=== PATIENT | male | born 1930 | race Caucasian/White ===

== ENCOUNTER 2019-08-03 10:52 | Inpatient (IN) ==
[2019-08-03 12:06] LABS: BASO# 0.01 X1000 (0.0-0.2); BASO% 0.1 % (0.0-0.8); EOS# 0.01 X1000 (0.0-0.7); EOS% 0.1 % (0.0-10.0); HEMATOCRIT 44.6 % (42.0-52.0); HEMOGLOBIN 14.4 g/dL (14.0-18.0); IMM GRAN# 0.01 X1000 (0.0-0.04); IMM GRAN% 0.1 % (0.0-0.5); LYMPH# 0.67 X1000 (1.2-3.4); LYMPH% 8.4 % (20.5-51.1); MCH 28.2 PG (27-31); MCHC 32.3 g/dL (33-37); MCV 87.3 FL (81-99); MONO# 0.66 X1000 (0.11-0.59); MONO% 8.3 % (1.7-9.3); MPV 11.2 FL (7.4-10.4); NEUT# 6.61 X1000 (1.4-6.5); PLT 183 X1000 (130-400); RBC 5.11 XMIL (4.7-6.1); WBC 7.97 X1000 (4.8-10.8)
[2019-08-03 12:14] LABS: INR 1.1; PROTIME 14.8 Seconds (11.0-16.0); PTT 30.2 Seconds (22.3-41.8)
[2019-08-03 12:20] LABS: AGAP 9; ALBUMIN 4.1 g/dL (3.5-5.0); ALKALINE PHOSPHATASE 66 U/L (32-122); BUN 31 mg/dL (8-22); CALCIUM 9.2 mg/dL (8.8-10.2); CHLORIDE 104 mmol/L (98-107); COSMO 287; CREATININE 0.8 mg/dL (0.7-1.2); ESTIMATED GFR > 60; GLUCOSE 85 mg/dL (70-104); GOT 17 U/L (10-34); GPT 9 U/L (10-44); POTASSIUM 4.2 mmol/L (3.5-5.1); SODIUM 141 mmol/L (136-145); TCO2 28 mmol/L (25-35); TOTAL PROTEIN 5.8 g/dL (6.3-8.3)
[2019-08-03 12:39] LABS: OCCULT BLOOD 1 POSITIVE (NEGATIVE)
[2019-08-03] MEDS ORDERED: APRESOLINE IV PRN (13:30)
[2019-08-03] MEDS ORDERED: ZOFRAN IV PRN (13:34)
[2019-08-03] MEDS ORDERED: TYLENOL PO PRN (13:34)
--- NOTE | 2019-08-03 13:51 | PROVIDER DOCUMENTATION ---
This chart was entered by Sandrita Morris Scribe, acting as scribe for Vineet Corcoran MD. HPI-Abdominal Pain/GI Problem - General Chief Complaint: Rectal Bleeding Stated Complaint: BLLODY/BLACK STOOL Time Seen by Provider: 08/03/19 11:18 Source: patient, family (son and grandson) Allergies/Adverse Reactions: Patient Allergies Allergy/AdvReac Type Severity Reaction Status Date / Time cefazolin sodium * Allergy Unknown Verified 08/03/19 12:00 [From [facility]] Home Medications: Home Medication List Medication Instructions Recorded Confirmed Last Taken Type LISINOpril [Prinivil] 10 mg PO DAILY 04/27/15 08/03/19 08/02/19 History Levothyroxine [Synthroid] 75 microgm PO DAILY 04/27/15 08/03/19 08/02/19 History Cyanocobalamin (Vitamin B-12) 1,000 mcg IJ DIRECTED 09/05/17 08/03/19 08/02/19 History [Cyanocobalamin Injection] Lovastatin 10 mg PO QHS 09/05/17 08/03/19 08/02/19 History Loratadine [Claritin] 10 mg PO DAILY #20 cap 04/23/19 08/03/19 08/02/19 Rx - History of Present Illness-ABD Nature of Presenting Problems: 88 yowm presents to the ed with c/o black tarry stool since yesterday morning. pt sts he has had no pain or any other issue other then black stool. pt is no ntoxic in appearance. Abdominal Pain Onset Location: denies: other (denies any pain) Quality of Pain: reports: none Severity in ED: reports: mild Onset/Duration: reports: 24 hours ago Timing: reports: still present, intermittent Activities at Onset: reports: light activity Exposure to sick contacts?: No Modifying Factors: improves with: nothing Associated Symptoms: reports: other (black tarry stool). denies: back/neck pain, chest pain, diarrhea, headaches, nausea, seizure, shortness of breath, vomiting Last BM: this morning Dark Stools Present?: reports: black, tarry # of Diarrhea Episodes: 0 Rectal Pain: reports: none # of Vomiting Episodes: 0 Emesis Description: reports: none Bruising or Bleeding Gums?: No Similar Symptoms Previously?: Yes (years ago) Recently seen or treated by another doctor?: No Review of Systems - Adult - REVIEW OF SYSTEMS - ADULT Constitutional: denies: chills, fever Eyes: reports: no symptoms reported Ears, Nose, Mouth & Throat: reports: no symptoms reported Cardiovascular: denies: chest pain, palpitations Respiratory: denies: shortness of breath, wheezing Gastrointestinal: reports: rectal bleeding (black tarry stool). denies: abdominal pain, diarrhea, nausea, vomiting Genitourinary: reports: no symptoms reported Musculoskeletal: reports: no symptoms reported Integumentary: reports: no symptoms reported Neurological: denies: dizziness/vertigo, headache/migraines Psychiatric: reports: no symptoms reported Endocrine: reports: no symptoms reported Hematologic/Lymphatic: reports: no symptoms reported Allergic/Immunologic: reports: no symptoms reported All Other Systems: Reviewed and Negative Past History - Adult - PAST MEDICAL HISTORY-ADULT Review of Records: reports: Old Records Reviewed, Nursing Assessment Review, Medications Reviewed, Social history reviewed & non-contributory. Major Childhood Illnesses: reports: denies history Cardiovascular: reports: HTN Respiratory: reports: denies history Gastrointestinal: reports: other (diverticulitis) Genitourinary: reports: denies history Musculoskeletal: reports: denies history Hand Dominance: Right Handed Neurological: reports: denies history Psychiatric: reports: denies history Endocrine/Immune: reports: thyroid disorder Other Conditions: reports: denies history - PRIOR SURGERIES/PROCEDURES Surgical/Procedure History: reports: bowel surgery, back/neck - IMMUNIZATION STATUS Childhood Immunizations: See Nurse Assessment Flu Vaccine: See Nurse Assessment - FAMILY HISTORY Family History: reviewed, not pertinent - SOCIAL HISTORY Smoking: denies Substance Use: denies Living Situation: alone Physical Exam-General - PHYSICAL EXAM-ADULT Initial Vital Signs Reviewed: Yes - CONSTITUTIONAL General Appearance: appears well, alert, no apparent distress (pt denies any pain just black stool) - EYES Eyes: PERRL/EOMI, pink conjunctivae - HEAD, EARS, NOSE, MOUTH & THROAT HENMT: moist mucous membranes - NECK Neck: non-tender, full range of motion, normal inspection - RESPIRATORY Respiratory: chest non-tender, lungs clear - CARDIOVASCULAR Cardiovascular: normal peripheral pulses, regular rate, rhythm - CHEST (BREASTS) Chest/Breast: deferred - GASTROINTESTINAL (ABDOMEN) Abdominal Exam: non tender, soft - GENITOURINARY Male Genitalia: deferred Rectal Exam: deferred, other (pt provided stool with a BM) Hemoccult Exam: heme positive stool - LYMPHATIC Lymphatic: no adenopathy - MUSCULOSKELETAL Back Exam: no CVA tenderness, no vertebral tenderness Extremity: normal range of motion, non-tender, normal gait - SKIN Integumentary: normal color, normal turgor, warm/dry - NEUROLOGIC Neurologic: grossly normal - PSYCHIATRIC Psych/Mental Status: normal mood/affect, normal thought content, normal thought process, oriented x 3 Progress - PLAN OF CARE/RESULTS Progress/Plan/Lab Results: Vital Signs - 8 hr 08/03/19 11:02 Temperature 98.3 F Pulse Rate 76 Respiratory Rate 18 Blood Pressure 169/63 O2 Sat by Pulse Oximetry 97 Result Diagrams: 08/03/19 11:45 08/03/19 11:45 - REASSESSMENT Reassessment #1 Time Reassessed: 12:49 Status: unchanged - CT/MRI 1 CT Study: Abdomen, Pelvis Impression: See EMR Report - CONSULTS/PCP/HOSPITALIST Notification #1 *Consult/PCP/Hospitalist*: hospitalist dr benavides Time Discussed: 12:51 (pt will go [facility] to [facility] for GI services) Consult Disposition: Admit Departure - Departure Date of Disposition Decision: 08/03/19 Time of Disposition Decision: 12:49 DIAGNOSIS: Lower GI bleed Disposition: ADMITTED INPATIENT 09 Certified Medical Emergency: Emergent Condition: Stable Referrals and Follow-Ups: Tahira Vásquez MD [Primary Care Provider] - - Critical Care Note This patient required my direct & personal management of CC.: No Attestation - Physician/ LANA Attestation Patient care was provided by Advanced Practice Provider:: No The physician spent face to face time with patient:: Yes Advanced Practice Provider documentation review:: Supervising physician onsite and consulted in the evaluation and care of this patient. The physician did have a face to face encounter with the patient. This chart was documented by the indicated scribe, (Sandrita Morris Scribe) and accurately reflects the services I performed and decisions made by me, Vineet Corcoran MD, as attested by the provider's signature.
[2019-08-03] MEDS ORDERED: CARAFATE LIQUID PO SCH ×2 (14:00→20:00)
[2019-08-03] MEDS: NS 1,000 ML IV PRN (14:06)
[2019-08-03] MEDS: SODIUM CHLORIDE 0.9% INJ SCH (14:06)
[2019-08-03] MEDS: PROTONIX IV SCH (14:06)
--- NOTE | 2019-08-03 14:12 | HISTORY AND PHYSICAL ---
PRIMARY CARE PROVIDER: Dr. Vásquez. CHIEF COMPLAINT: Black tarry stools. HISTORY OF PRESENT ILLNESS: Mr. Justin Hernandez is an 88-year-old, male with a medical history of bleeding diverticulitis and diverticulosis with a subtotal abdominal colectomy performed in 2014. It was also his last colonoscopy. The only GI irritant that he even takes would be an aspirin 81 mg p.o. daily. Otherwise he takes no czzq-ldg-mpyvork medications. He states that yesterday morning he had a blood pressure over 200 and then started having large black story stools yesterday. He 1 large black tarry stool yesterday. He has only had 1 small stool this morning but both have been black, tarry and positive for blood in the stool. The hemoglobin and hematocrit are stable at 14 and 44. His vital signs are stable. We are going to admit, do some scans, start him on Protonix, Carafate, clear liquids. PAST MEDICAL HISTORY: 1. Hypertension. 2. Dyslipidemia. 3. Hypothyroidism. 4. Diverticulosis and diverticulitis. 5. BPH. 6. Osteoarthritis. 7. Vitamin B12 deficiency. 8. Carotid artery stenosis. 9. Allergic rhinitis. SURGICAL HISTORY: 1. In 2015 had a colonoscopy, in 2015 had a subtotal abdominal colectomy by Dr. Sanabria. 2. Eyelid surgery. 3. ORIF of the right distal radius. SOCIAL HISTORY: Quit smoking in 1974 but he was a 2 pack per day smoker for 18 years prior to that. Rarely drinks alcohol. Denies any illicit drugs. He has one son who lives in [place] and another one in [place]. He had his grandson with him and he currently lives alone. FAMILY HISTORY: He had a daughter that actually from lung cancer. ALLERGIES: Codeine and cefazolin. HOME MEDICATIONS: 1. Lovastatin 10 mg p.o. nightly. 2. Vitamin B12 1000 mcg injection, says as directed, there were no specifics on that. 3. Lisinopril 10 mg p.o. daily. 4. Synthroid 75 mcg p.o. daily. 5. Claritin 10 mg p.o. daily. 6. Aspirin 81 mg p.o. daily. REVIEW OF SYSTEMS: He denies abdominal pain, nausea or vomiting and all were negative except for those mentioned in above HPI. PHYSICAL EXAMINATION: VITAL SIGNS: Temperature 98.3 degrees, heart rate 76, respiratory rate 18, blood pressure 169/63, O2 saturation 97% on room air. 5 feet 11 inches tall, 196 pounds. BMI is 27.3. GENERAL: Justin Hernandez is an 88-year-old, male. He is in no acute distress. He is able answer questions appropriately. HEENT: Atraumatic, normocephalic. Pupils equal, round, reactive to light. Extraocular movements intact. The skin around the eyelids they are very droopy and even showed the inside of the eyelids on the bottom. NECK: Trachea midline. CARDIOVASCULAR: S1, S2. Regular rate and rhythm. No rubs, gallops, murmurs. No lower extremity edema. +2 dorsalis and radial pulses. Negative JVD or carotid bruits. PULMONARY: Clear to auscultation. Bilateral breath sounds. No accessory muscle use or work of breathing noted/ GI: Soft, nontender, nondistended. Positive bowel sounds x4. EXTREMITIES: Moves all extremities equally. Decreased range of motion. NEUROLOGIC: A and O x3. Follows commands. Sensory is intact. SKIN: Warm, dry, intact. LABORATORY DATA: White blood cells 7000, hemoglobin 14, hematocrit 44, platelet count 183,000. INR is 1.10, PTT 30.2. Sodium 141, potassium 4.2, BUN 31, creatinine 0.8, glucose 85, calcium 9.2, bilirubin 0.90, AST 17, ALT 9, albumin 4.1. Stools positive for blood. IMAGING: None but has been ordered. ASSESSMENT/PLAN: 1. Likely diverticular bleed as he has had that in the past although it is black and tarry. We will hold his aspirin that he takes every day. We will do q.6 hours H and H. He will have Protonix IV twice a day. We will add Carafate 1 g every 6 hours. We will send for oral and IV contrasted abdominal pelvic CT scan. 2. Hypertension. He is going to get IV contrast and we will hold lisinopril for now. We will give him some IV fluids and he can have p.r.n. hydralazine for an elevated systolic over 180. 3. Dyslipidemia. He takes lovastatin. We are holding that for now. 4. Hypothyroidism. Continue Synthroid. 5. BPH. Looks like he is not on any medications for that. 6. Vitamin B12 deficiency. He takes vitamin B12 subcutaneous injections at home. 7. Carotid atherosclerosis. No reports of stroke in the past. 8. Allergic rhinitis. He takes Claritin, hold that for now. 9. Deep venous thrombosis prophylaxis. SCDs. Dictated by JAMES Gutierrez for Darian Valencia MD Addendum: Patient seen and examined by myself. Agree with TRAFFIC SURVEY TECHNICIAN note. It reflects my assessment and plan. Patient is admitted to hospital for GI bleeding, in this case melena. Will start Protonix 40 mg IV q12 hrs, will consult GI and transfer patient to [facility]. Will monitor patient closely. cc: JAMES Gutierrez MD [facility]
[2019-08-03] MEDS ORDERED: NS 1,000 ML IV PRN (15:10)
--- NOTE | 2019-08-03 16:26 | Diag Imaging Result Doc PS360 ---
EXAM: CT ABD/PELVIS W/PO AND IV CON 08/03/2019 HISTORY: gib TECHNIQUE: This exam was performed using automated exposure control, adjustment of mA or kV according to patient size, and/or use of iterative reconstruction technique. COMMENT: The current study is compared with 03/24/2015. There is increased interstitial markings in both lung bases compared to the previous study which may indicate pulmonary edema. There is a large hiatal hernia. The spleen is not enlarged. There is a partially calcific and fatty nodule in the left adrenal gland. This is not changed significantly since the previous study. There is possible this is an adenoma and/or granulomatous change. There are dense atherosclerotic calcifications present in the proximal superior mesenteric artery. There are also calcifications in the ostia of the renal arteries particularly the right renal artery. There is infrarenal abdominal aortic aneurysm with a maximum AP diameter of 3.7 cm. This is increased from 3.5 cm at the time the previous study. The pancreas is stable in appearance. There is no evidence of bowel obstruction. There are multiple renal cysts particularly on the left where one cyst measures 3.5 cm in diameter. The small bowel is not distended. There has apparently been colectomy with anastomosis of the distal ileum with the rectum. Pelvis: The prostate gland is enlarged. It measures 6.9 x 5.5 cm. The urinary bladder is not distended. There is ankylosis of the sacroiliac joints. There are degenerative changes in the hip joints. There are severe degenerative disc and facet changes in the lumbar spine. No evidence of acute bony disease is present. IMPRESSION: No evidence of obstruction, abnormal fluid collections or free air. Interstitial pulmonary edema. Abdominal aortic aneurysm. Other nonacute findings as described above. Electronically signed by Jewel Dean 08/03/2019 4:23 PM
[2019-08-03 18:39] LABS: HEMOGLOBIN 13.9 g/dL (14.0-18.0)
[2019-08-04] MEDS: NS 1,000 ML IV PRN (00:10)
[2019-08-04] MEDS: PROTONIX IV SCH ×2 (00:15→13:24)
[2019-08-04 00:52] LABS: HEMATOCRIT 35.7 % (42.0-52.0); HEMOGLOBIN 11.7 g/dL (14.0-18.0)
[2019-08-04] MEDS: SYNTHROID PO SCH (06:32)
[2019-08-04] MEDS ORDERED: SYNTHROID PO SCH (07:00)
[2019-08-04 07:21] LABS: INR 1.24; PROTIME 15.8 Seconds (11.0-16.0)
[2019-08-04 07:22] LABS: PTT 32.4 Seconds (22.3-41.8)
[2019-08-04 07:33] LABS: AGAP 8; ALBUMIN 3.2 g/dL (3.5-5.0); ALKALINE PHOSPHATASE 43 U/L (32-122); BUN 26 mg/dL (8-22); CALCIUM 8.2 mg/dL (8.8-10.2); CHLORIDE 105 mmol/L (98-107); COSMO 282; CREATININE 0.7 mg/dL (0.7-1.2); ESTIMATED GFR > 60; GLUCOSE 102 mg/dL (70-104); GOT 14 U/L (10-34); GPT 7 U/L (10-44); MAGNESIUM 1.7 mg/dL (1.5-2.7); SODIUM 139 mmol/L (136-145); TCO2 26 mmol/L (25-35); TOTAL BILIRUBIN 0.71 mg/dL (0.20-1.00); TOTAL PROTEIN 4.8 g/dL (6.3-8.3)
[2019-08-04 08:07] LABS: BASO# 0.01 X1000 (0.0-0.2); BASO% 0.2 % (0.0-0.8); EOS# 0.04 X1000 (0.0-0.7); EOS% 0.7 % (0.0-10.0); HEMOGLOBIN 11.7 g/dL (14.0-18.0); LYMPH# 0.68 X1000 (1.2-3.4); LYMPH% 11.9 % (20.5-51.1); MCH 28.5 PG (27-31); MCHC 32.5 g/dL (33-37); MCV 87.6 FL (81-99); MONO# 0.56 X1000 (0.11-0.59); MONO% 9.8 % (1.7-9.3); MPV 11.3 FL (7.4-10.4); NEUT# 4.43 X1000 (1.4-6.5); NEUT% 77.4 % (42.2-75.2); PLT 160 X1000 (130-400); RBC 4.11 XMIL (4.7-6.1); RDW 13.6 % (11.5-14.5); WBC 5.72 X1000 (4.8-10.8)
[2019-08-04 11:55] LABS: HEMATOCRIT 36.2 % (42.0-52.0); HEMOGLOBIN 11.8 g/dL (14.0-18.0)
--- NOTE | 2019-08-04 12:29 | PROGRESS NOTE ---
DATE: 08/04/2019 INTERVAL HISTORY: The patient reports feeling well but has continued to have melenic stools. Last was late last night. No bowel movements so far this morning. Denies dyspnea, chest pain, diaphoresis, dizziness. REVIEW OF SYSTEMS: Twelve point review of systems negative except as per interval history. LABS: WBC 5.7, hemoglobin 11.7, hematocrit 36.0, platelets 160,000. INR 1.24. Basic metabolic panel unremarkable. Magnesium 1.7. LFTs within normal limits. Stool occult blood positive. VITALS: T-max 98.3 degrees, pulse 81, respirations 12, blood pressure 136/77, O2 saturation 96% on room air. PHYSICAL EXAMINATION: General: No acute distress. Vitals: As above. HEENT: Normocephalic, atraumatic. Moist mucous membranes. No cervical adenopathy. Cardiovascular: Regular rate and rhythm. No murmurs noted. Pulmonary: Clear to auscultation bilaterally. No wheezing, rales, or rhonchi. Abdomen: Soft, nontender, nondistended. Bowel sounds positive. Extremities: Peripheral pulses intact. No clubbing, cyanosis, or edema. Neurologic: Cranial nerves grossly intact. No focal deficits identified. Psychiatric: Normal mood and affect. Awake, alert, and oriented x3. Skin: No new appearing rashes or lesions identified. ASSESSMENT AND PLAN: 1. Likely upper gastrointestinal bleed and acute blood loss anemia. The patient is presenting with melenic stools. Initial hemoglobin essentially normal but downtrend overnight. Initial hemoglobin 14.4. Hemoglobin down to 11.7 this morning. Repeat this afternoon stable but does appear to be bleeding. Still with melenic stools yesterday evening. Continue proton pump inhibitor. Monitor blood counts and await further gastroenterology recommendations. Suspect he will go for endoscopy tomorrow. No need for transfusion at this time but we will consider it if his blood counts continue to decrease significantly. 2. Hypothyroidism. Continue home Synthroid dose. 3. Hyperlipidemia. Restart home lovastatin once he is able to take adequate oral intake. 4. Hypertension. Holding home lisinopril currently. We will monitor. 5. Allergies. We will restart home loratadine when he is taking adequate oral intake.
[2019-08-05] MEDS: PROTONIX IV SCH ×2 (01:14→14:29)
[2019-08-05] MEDS: SYNTHROID PO SCH (06:12)
[2019-08-05 07:29] LABS: BASO# 0.02 X1000 (0.0-0.2); BASO% 0.4 % (0.0-0.8); EOS# 0.04 X1000 (0.0-0.7); EOS% 0.7 % (0.0-10.0); HEMATOCRIT 31.8 % (42.0-52.0); HEMOGLOBIN 10.5 g/dL (14.0-18.0); LYMPH# 0.69 X1000 (1.2-3.4); LYMPH% 12.1 % (20.5-51.1); MCH 28.8 PG (27-31); MCV 87.4 FL (81-99); MONO# 0.55 X1000 (0.11-0.59); MONO% 9.6 % (1.7-9.3); MPV 11.3 FL (7.4-10.4); NEUT# 4.41 X1000 (1.4-6.5); NEUT% 77.2 % (42.2-75.2); PLT 148 X1000 (130-400); RBC 3.64 XMIL (4.7-6.1); RDW 13.5 % (11.5-14.5); WBC 5.71 X1000 (4.8-10.8)
[2019-08-05 07:47] LABS: AGAP 8; ALB/GLOB RATIO 2.3; ALBUMIN 3.2 g/dL (3.5-5.0); ALKALINE PHOSPHATASE 38 U/L (32-122); BUN 25 mg/dL (8-22); CALCIUM 8.3 mg/dL (8.8-10.2); CHLORIDE 105 mmol/L (98-107); COSMO 280; CREATININE 0.6 mg/dL (0.7-1.2); ESTIMATED GFR > 60; GLUCOSE 102 mg/dL (70-104); GOT 15 U/L (10-34); GPT 7 U/L (10-44); MAGNESIUM 1.9 mg/dL (1.5-2.7); POTASSIUM 3.8 mmol/L (3.5-5.1); SODIUM 138 mmol/L (136-145); TCO2 25 mmol/L (25-35); TOTAL BILIRUBIN 0.86 mg/dL (0.20-1.00); TOTAL PROTEIN 4.6 g/dL (6.3-8.3)
[2019-08-05] MEDS ORDERED: XYLOCAINE-MPF 2% ONE (10:41)
[2019-08-05] MEDS ORDERED: DIPRIVAN 1% ONE (10:41)
--- NOTE | 2019-08-05 11:28 | ENDOSCOPY OPERATIVE NOTE ---
[facility] ENDOSCOPY OPERATIVE NOTE , PATIENT: Justin Hernandez ADMISSION DATE: MR#: [id number] : 1930 EGD PROCEDURE REPORT PROCEDURE DATE: 08/05/2019 SURGEON: Meet Parrish MD STATUS: inpatient [employer]ITATION TRUCK DRIVER: Arslan Beach and Neida Rivera PREOPERATIVE DIAGNOSIS: The patient is a 88 yr old male here for an EGD due to Melena, anemia, GI Bl eed. PROCEDURE PERFORMED: EGD, diagnostic MEDICATIONS: Per Anesthesia TOPICAL ANESTHETIC: none CONSENT: The patient understands the risks and benefits of the procedure and understands that these r isks include, but are not limited to: sedation, allergic reaction, infection, perforation and/or bleeding. Alternative means of evaluation and treatment include, among others: physical exam, x-rays, and/or surgical intervention. The patient elects to proceed with this endoscopic procedure. HISORY AND PHYSICAL: 08/05/2019 function. Hand hygiene and appropriate measures for infection prevention was taken. After the risks, benefits and alternatives of the procedure were thoroughly explained, Informed consent was verified, confirmed and timeout was successfully executed by the treatment team. The patient was anesthetized with topical anesthesia and the endoscope was introduced through the mouth and advanced to the second portion of the duodenum. Retroflexion wa s performed in the stomach and revealed a hiatal hernia. The gastroscope was then slowly withdrawn and removed. ESOPHAGUS: The mucosa of the esophagus appeared normal. A hiatal hernia was noted. Large Para eso phageal Hiatal hernia noted involving majority of the stomach causing difficulty with the passage of EGD scope into the distal body and antrum. Need surgery evaluation and Barium UGI series. STOMACH: Acute gastritis (inflammation) was found in the gastric body and gastric antrum. DUODENUM: The duodenal mucosa showed no abnormalities in the duodenal bulb, 1st part duodenum, and 2n d part duodenum. SPECIMENS REMOVED: No ADVERSE EVENTS: There were no complications. POSTOPERATIVE DIAGNOSIS: 1. The mucosa of the esophagus appeared normal 2. Hiatal hernia 3. Large Para esophageal Hiatal hernia noted involving majority of the stomach causing difficulty wi th the passage of EGD scope into the distal body and antrum. Need surgery evaluation and Barium UGI series 4. Acute gastritis (inflammation) was found in the gastric body and gastric antrum 5. The duodenal mucosa showed no abnormalities in the duodenal bulb, 1st part duodenum, and 2nd part duodenum RECOMMENDATIONS: Watch Hct and trasfuse as needed; Surgery consultaion; Schedule for UGI barium s tudy to evaluate for Hiatal hernia; Start PPI BID for 3 months; Start iron C BID and MVI QD for 90 days. May need col onoscopy if continues to drop Hct. REPEAT EXAM: Meet Parirsh MD eSigned: Meet Parrish MD 08/05/2019 12:28 PM cc: PATIENT NAME: Justin Hernandez MR#: [id number]
--- NOTE | 2019-08-05 14:44 | PROGRESS NOTE ---
DATE: 08/05/2019 INTERVAL HISTORY: The patient is with no further complaints of melena but blood counts are still decreasing. Status post EGD earlier today showing gastritis and large hiatal hernia which contained almost the entirety of the stomach. There was some difficulty advancing the scope into the stomach. No other acute events. No new complaints. REVIEW OF SYSTEMS: Twelve point review of systems negative except as per interval history. LABS: WBC 5.7, hemoglobin 10.5, hematocrit 31.8, platelets 148,000. Basic metabolic panel unremarkable. VITALS: T-max 98.6 degrees, pulse 76, respirations 20, blood pressure 134/74, O2 saturation 98% on room air. PHYSICAL EXAMINATION: General: No acute distress. Vitals: As above. HEENT: Normocephalic, atraumatic. Eyelids somewhat hypertrophic, which is chronic and stable. Cardiovascular: Regular rate and rhythm. No murmurs noted. Pulmonary: Clear to auscultation bilaterally. Abdomen: Soft, nontender, nondistended. Bowel sounds positive. Extremities: Peripheral pulses intact. No clubbing, cyanosis. Neurologic: Cranial nerves grossly intact. No focal deficits identified. Psychiatric: Normal mood and affect. Awake, alert, and oriented x3. Skin: No new rashes or lesions identified. ASSESSMENT AND PLAN: 1. Upper gastrointestinal bleed and acute blood loss anemia. Patient presenting with melenic stools. Initial hemoglobin was essentially normal but has had steady downtrend since then. Initial hemoglobin was 14.4, down to 10.5 today. No need for transfusion but if it continues to trend down, he may get there. Esophagogastroduodenoscopy showing gastritis which may be the source of bleeding but no ulcers. It also showed a large hiatal hernia almost entirely containing the stomach. Gastroenterology recommending a barium swallow and surgical evaluation for this. We will continue monitoring blood counts and transfuse if needed. Continue proton pump inhibitor. 2. Hypothyroidism. Continue home Synthroid. 3. Hyperlipidemia. We will likely restart his home lovastatin once he is taking oral intake regularly. 4. Hypertension. Holding home lisinopril currently, given normal blood pressures. Monitor. 5. Seasonal allergies. Restart home loratadine once he is taking regular oral intake.
--- NOTE | 2019-08-05 14:56 | Diag Imaging Result Doc PS360 ---
GI SERIES WITH BA SWALLOW - 08/05/2019 INDICATION: Evaluate for para esophageal hiatal hernia TECHNIQUE: Upper GI with air contrast. Total fluoroscopy time was two minutes 55 seconds. 86 images were obtained. COMPARISON: CT from 08/03/2019 FINDINGS: The gastroesophageal junction is located just above the diaphragmatic hiatus. There is a large paraesophageal hernia with about three quarters of the stomach up in the chest behind the heart. There is mild presbyesophagus with some tertiary waves during the later swallowing phases. There is also mild to moderate reflux when the patient is recumbent to the high thoracic esophagus. No esophageal strictures. No mass or definite ulceration. IMPRESSION: 1. Large paraesophageal hiatal hernia with the majority of the stomach up in the chest. The gastroesophageal junction is just above the hiatus. 2. Moderate presbyesophagus. 3. Moderate reflux when the patient is common. Electronically signed by Missael Chin 08/05/2019 2:54 PM
[2019-08-05] MEDS: ICAR-C PO SCH (21:21)
[2019-08-06] MEDS: PROTONIX IV SCH ×2 (02:14→16:17)
[2019-08-06] MEDS: SYNTHROID PO SCH (06:13)
[2019-08-06 07:59] LABS: AGAP 9; ALB/GLOB RATIO 2.9; ALBUMIN 3.5 g/dL (3.5-5.0); ALKALINE PHOSPHATASE 41 U/L (32-122); BUN 18 mg/dL (8-22); CALCIUM 8.1 mg/dL (8.8-10.2); CHLORIDE 105 mmol/L (98-107); COSMO 283; CREATININE 0.5 mg/dL (0.7-1.2); ESTIMATED GFR > 60; GLUCOSE 101 mg/dL (70-104); GOT 16 U/L (10-34); GPT 7 U/L (10-44); MAGNESIUM 1.8 mg/dL (1.5-2.7); SODIUM 141 mmol/L (136-145); TCO2 27 mmol/L (25-35); TOTAL BILIRUBIN 1.08 mg/dL (0.20-1.00); TOTAL PROTEIN 4.7 g/dL (6.3-8.3)
[2019-08-06 08:29] LABS: BASO# 0.01 X1000 (0.0-0.2); BASO% 0.2 % (0.0-0.8); EOS# 0.04 X1000 (0.0-0.7); EOS% 0.8 % (0.0-10.0); HEMATOCRIT 30.6 % (42.0-52.0); HEMOGLOBIN 9.6 g/dL (14.0-18.0); LYMPH# 0.62 X1000 (1.2-3.4); LYMPH% 12.1 % (20.5-51.1); MCH 28.1 PG (27-31); MCHC 31.4 g/dL (33-37); MCV 89.5 FL (81-99); MONO# 0.42 X1000 (0.11-0.59); MONO% 8.2 % (1.7-9.3); MPV 11.6 FL (7.4-10.4); NEUT# 4.02 X1000 (1.4-6.5); NEUT% 78.7 % (42.2-75.2); PLT 159 X1000 (130-400); RBC 3.42 XMIL (4.7-6.1); RDW 13.7 % (11.5-14.5); WBC 5.11 X1000 (4.8-10.8)
[2019-08-06] MEDS: THERA M PLUS PO SCH (11:04)
[2019-08-06] MEDS: ICAR-C PO SCH ×2 (11:04→22:30)
--- NOTE | 2019-08-06 15:38 | PROGRESS NOTE ---
DATE: 08/06/2019 SUBJECTIVE: The patient states that he feels better. He is not further complaining of melena but his hemoglobin is still dropping though, he is tolerating p.o. He has a large paraesophageal hiatal hernia with the majority of the stomach up in the chest, the gastroesophageal junction is just above the hiatus, moderate presbyesophagus and moderate reflux, he was also scope by Gastroenterology Department, esophageal mucosa looks normal and also they found a large paraesophageal hiatal hernia, also gastritis, surgery department evaluated this patient. We will wait for recommendations. PHYSICAL EXAMINATION: Temperature 97.7 degrees, pulse 83, respiratory rate 20, blood pressure 108/72, oxygen saturation 98 on room air.HEENT: Head normocephalic. No trauma. PERRLA. Neck: Supple. No JVD. No masses. Central trachea. Chest: Clear to auscultation. No wheezing, no rales. Abdomen: Soft, nondistended, positive bowel sounds. Extremities: No edema, no clubbing, no cyanosis. Neurologic: Patient is alert, he is oriented x3. He follows commands. He moves all 4 extremities. LABORATORY: WBC 5.1, hemoglobin 9.6, hematocrit 30.6, platelet 159,000. Sodium 141, potassium 4, chloride 105, bicarbonate 27, BUN 18, creatinine 0.5, glucose 101, calcium 8.1, albumin 3.5. ASSESSMENT AND PLAN: 1. Gastrointestinal bleed and acute blood loss anemia. His hemoglobin dropped compared with yesterday from 10.5 to 9.6, they found a gastritis and also large paraesophageal hiatal hernia, surgery department has been consulted. I will wait for recommendations. 2. Hypothyroidism. Continue with Synthroid. 3. Hyperlipidemia. Continue with same management. 4. Hypertension currently seems to be stable. We will continue to monitor. 5. Seasonal allergies. Will restart loratadine upon discharge. cc: Roc Matute MD
[2019-08-06] MEDS: SODIUM CHLORIDE 0.9% INJ SCH (16:17)
--- NOTE | 2019-08-06 22:09 | GENERAL SURGERY CONSULTATION ---
DATE: 08/06/2019 REASON FOR CONSULTATION: Paraesophageal hernia. HISTORY OF PRESENT ILLNESS: This is an 88-year-old male who presented to the hospital a few days ago with recent onset of dark stools. He was found to have blood in his stools and has undergone an EGD yesterday along with an upper GI barium swallow that both demonstrated a large paraesophageal hernia, as well as acute gastritis. The duodenum apparently was normal. Since that time. He has had no further significant bloody stools. He denies any abdominal pain, chest pain, shortness of breath, history of aspiration pneumonia, regurgitation, vomiting, indigestion, heartburn, dysphagia, etc. PAST MEDICAL HISTORY: Hypertension, hypothyroidism, diverticulitis, BPH, osteoarthritis, coronary artery disease. PAST SURGICAL HISTORY: Subtotal colectomy, ORIF of right distal radius. SOCIAL HISTORY: He quit smoking in 1974. He drinks alcohol rarely. No illicit drug use. He lives alone. ALLERGIES: Ancef. FAMILY HISTORY: His daughter of lung cancer. HOME MEDICATIONS: Lovastatin, vitamin B12, lisinopril, Synthroid, Claritin, aspirin. REVIEW OF SYSTEMS: Ten systems reviewed and are negative except as noted above in HPI. PHYSICAL EXAMINATION: Temperature 97.5 degrees, pulse 87, respirations 18, blood pressure 113/69, O2 saturation 96%. General: Elderly male who looks his stated age, in no acute distress.HEENT: Normocephalic, atraumatic. Extraocular muscles intact. Pupils equal, round, reactive to light. Sclerae anicteric. Moist mucous membranes. Hearing grossly normal. Neck: Supple. No thyromegaly. Cardiovascular: Regular rate and rhythm. Respiratory: Bilateral breath sounds. No increased work of breathing. Gastrointestinal: Soft, nontender, nondistended. No organomegaly or mass. Extremities: No clubbing, cyanosis or edema. Skin: Warm and dry. No rash. Musculoskeletal: Moves all extremities equally and well. LABORATORY DATA: White blood cell count 5, hemoglobin 9.6, hematocrit 30.6, platelet count 159,000. Electrolytes reviewed and are unremarkable. DIAGNOSTIC DATA: His upper GI series shows a large paraesophageal hernia with the majority of the stomach in the chest. The gastroesophageal junction is just above the hiatus. He has moderate presbyesophagus and moderate reflux. ASSESSMENT AND PLAN: An 88-year-old male with acute blood loss anemia, likely from the gastritis. He is hemodynamically stable. It appears that the bleeding has subsided. He also has a new diagnosis of a paraesophageal hernia. Interestingly, he is asymptomatic from this except for the bleeding at this time. Given his age and lack of symptoms, I recommend a conservative approach with proton pump inhibitor and Carafate, and avoiding surgery if possible. We will continue to monitor. I will start him on a clear liquid diet and advance him as tolerated. cc: Balaji Vanegas MD
--- NOTE | 2019-08-06 23:47 | PROVIDER PROGRESS NOTE ---
Progress Note S: No acute overnight events. He denies further melena. No abdominal pain, CP, SOB. O: Last Vital Signs Temp 97.9 F 08/06/19 20:00 Pulse 73 08/06/19 20:00 Resp 19 08/06/19 20:00 BP 100/38 08/06/19 20:00 Pulse Ox 93 L 08/06/19 20:00 Height 5 ft 11 in Weight 196 lb GEN: awake, alert, NAD HEENT: anicteric, MMM NECK: supple, no JVD PULM: CTAB, no wheezing CV: RRR, no murmurs ABD: soft NT/ND, NABS EXT: no cce NEURO: nonfocal LABS: 08/06/19 08/06/19 06:50 06:50 WBC 5.11 Hgb 9.6 L Plt Count 159 Sodium 141 Potassium 4.0 Chloride 105 Carbon Dioxide 27 BUN 18 Creatinine 0.5 L EGD 08/05 ESOPHAGUS: The mucosa of the esophagus appeared normal. A hiatal hernia was noted. Large Para esophageal Hiatal hernia noted involving majority of the stomach causing difficulty with the passage of EGD scope into the distal body and antrum. Need surgery evaluation and Barium UGI series. STOMACH: Acute gastritis (inflammation) was found in the gastric body and gastric antrum. DUODENUM: The duodenal mucosa showed no abnormalities in the duodenal bulb, 1st part duodenum, and 2nd part duodenum. A/P: Mr. Justin Hernandez is a 88 year old man who was admitted with acute GI bleeding melena. He underwent EGD on 08/05 that revealed a large paraesophageal hernia and mild antral gastritis. There were no Omar's ulcers or stigmata of recent bleeding. He was seen by Surgery today for evaluation and hernia who recommended conservative mgmt as he is basically asymptomatic from this. The patient denies complaints at this time. He is stable and tolerating diet. Will continue PPI BID. He can take this orally. I do not see the benefit of Carafate, which we can stop. If his hgb continues to drop, then he will need diagnostic colonoscopy. Will follow with you.
[2019-08-07] MEDS: SYNTHROID PO SCH (06:36)
[2019-08-07 08:09] LABS: BASO# 0.01 X1000 (0.0-0.2); BASO% 0.2 % (0.0-0.8); EOS# 0.04 X1000 (0.0-0.7); EOS% 0.8 % (0.0-10.0); HEMATOCRIT 29.6 % (42.0-52.0); HEMOGLOBIN 9.2 g/dL (14.0-18.0); LYMPH# 0.65 X1000 (1.2-3.4); LYMPH% 13.6 % (20.5-51.1); MCHC 31.1 g/dL (33-37); MONO# 0.45 X1000 (0.11-0.59); MONO% 9.4 % (1.7-9.3); MPV 11.4 FL (7.4-10.4); NEUT# 3.63 X1000 (1.4-6.5); PLT 173 X1000 (130-400); RBC 3.29 XMIL (4.7-6.1); RDW 13.6 % (11.5-14.5); WBC 4.78 X1000 (4.8-10.8)
[2019-08-07] MEDS: THERA M PLUS PO SCH (08:09)
[2019-08-07] MEDS: ICAR-C PO SCH (08:09)
[2019-08-07 08:23] LABS: AGAP 7; ALB/GLOB RATIO 2.5; ALBUMIN 3.5 g/dL (3.5-5.0); ALKALINE PHOSPHATASE 44 U/L (32-122); BUN 14 mg/dL (8-22); CALCIUM 8.6 mg/dL (8.8-10.2); CHLORIDE 105 mmol/L (98-107); COSMO 284; CREATININE 0.7 mg/dL (0.7-1.2); ESTIMATED GFR > 60; GLUCOSE 98 mg/dL (70-104); GOT 18 U/L (10-34); GPT 8 U/L (10-44); POTASSIUM 4.3 mmol/L (3.5-5.1); SODIUM 142 mmol/L (136-145); TCO2 30 mmol/L (25-35); TOTAL BILIRUBIN 1.03 mg/dL (0.20-1.00); TOTAL PROTEIN 4.9 g/dL (6.3-8.3)
[2019-08-07] MEDS ORDERED: PROTONIX PO SCH (09:00)
[2019-08-07 11:57] VITALS: BP 128/79
[2019-08-07 13:37] LABS: HEMATOCRIT 32.1 % (42.0-52.0); HEMOGLOBIN 10.1 g/dL (14.0-18.0)
--- NOTE | 2019-08-07 16:22 | DISCHARGE SUMMARY ---
ADMISSION DATE: 08/03/2019 DISCHARGE DATE: 08/07/2019 DISCHARGE DIAGNOSES: 1. Gastrointestinal bleed and acute blood loss anemia. 2. Paraesophageal hernia. 3. Gastritis found in the gastric body and gastric antrum. PROCEDURES PERFORMED: 1. Abdomen and pelvis CT scan dated 08/03/2019. Impression: No evidence of obstruction, abnormal fluid collection or free air. Interstitial pulmonary edema, abdominal aortic aneurysm. 2. Upper GI/barium swallow dated 08/05/2019. Impression: Large paraesophageal hiatal hernia with the majority of the stomach up in the chest, the gastroesophageal junction is just above the hiatus, moderate presby esophagus, moderate reflux. 3. Upper endoscopy dated 08/05/2019. Impression: Large paraesophageal hiatal hernia, acute gastritis found in the gastric body and gastric antrum. CONSULTANTS: 1. Gastroenterology Department Dr. Parrish/Dr. Cueva. 2. Surgery Department, Dr. Balaji Vanegas. HOSPITAL COURSE: An 88-year-old male with a past medical history of bleeding, diverticulitis and diverticulosis with a subtotal abdominal colectomy performed in 2014. He states that 1 day prior to the admission he had a blood pressure over 200, and he started having large black stools, that he described like black tarry stool. We evaluated that. and he was positive for blood. The hemoglobin and hematocrit initially was 14.4, but then started dropping. The next day it went down to 11.8, 2 days after that, 10.5, and then 9.6. He was scoped and they found gastritis and a large paraesophageal hiatal hernia, but no signs of bleeding. Hemoglobin and hematocrit after that was way more stable. Surgery Department evaluated this patient and since this patient is not having symptoms, they have recommended to continue with proton pump inhibitors and just keep an eye on that in the meantime. The patient and the family agree with these. He will be discharged today. He will follow up with Gastroenterology Department in 1 month because likely this patient will need to get a colonoscopy done as an outpatient. Also, follow up with his primary doctor in 1 week. This has been explained to the patient and his daughter at the bedside. PHYSICAL EXAMINATION: Vital Signs: Temperature 98.1 degrees, pulse 67, respiratory rate 20, blood pressure 128/79, oxygen saturation 98 on room air. HEENT: Head normocephalic. No trauma. PERRLA. Neck: Supple. No JVD. No masses. Central trachea. Chest: Clear to auscultation. No wheezing. No rales. Abdomen: Soft and nontender. Extremities: No edema. No clubbing. Neurological: He is alert. He is oriented x3. He follows commands. He moves all 4 extremities. LABORATORY: WBC 4.7, hemoglobin 10.1, hematocrit 32.1, and platelets 173,000. Sodium 142, potassium 4.3, chloride 105, bicarbonate 30, BUN 14, creatinine 0.7, glucose 98, and calcium 8.6. AST 18, ALT 8, alkaline phosphatase 44, bilirubin 1, and albumin 3.5. DISCHARGE MEDICATIONS: 1. Vitamin B12 injection at 1000 mcg as directed. 2. Icar C1 tab p.o. b.i.d. 3. Synthroid 75 mcg p.o. daily. 4. Lisinopril 10 mg p.o. daily. 5. Loratadine 10 mg p.o. daily. 6. Lovastatin 10 mg p.o. at bedtime. 7. Thera M Plus 1 tablet p.o. daily. 8. Protonix 40 mg p.o. b.i.d. FOLLOWUP: Follow up with primary care doctor in 1 week. Follow up with Dr. Cueva in 1 month, and likely this patient will need a colonoscopy done. TIME SPENT: Time discharging this patient 30 minutes. cc: Roc Matute MD
--- NOTE | 2019-08-07 18:40 | GENERAL SURGERY PROGRESS NOTE ---
DATE: 08/07/2019 SUBJECTIVE: The patient is doing well. He denies abdominal pain, nausea, vomiting. He reports another bowel movement that was black, although that is not recorded. OBJECTIVE: Vital Signs: He is afebrile. Vital signs are stable. General: He is awake, alert, oriented x3. No acute distress. Gastrointestinal: Abdomen soft, nontender, nondistended. LABORATORY: Hemoglobin 9.2, hematocrit 29.6. ASSESSMENT AND PLAN: An 88-year-old male with gastrointestinal bleed of unclear etiology. He also has a large paraesophageal hernia which he is asymptomatic from. Per Dr. Cueva, he does not think the bleeding is coming from the stomach or esophagus. At this point, he is hemodynamically stable. His hemoglobin and hematocrit appear to be stable. I think he can probably be discharged today with outpatient follow up in the GI Clinic. cc: Balaji Vanegas MD
--- NOTE | 2019-08-07 23:41 | PROVIDER PROGRESS NOTE ---
Progress Note S: No acute overnight events. Patient denies complaints. O: Last Vital Signs Temp 98.1 F 08/07/19 11:56 Pulse 67 08/07/19 11:56 Resp 20 08/07/19 11:56 BP 128/79 08/07/19 11:56 Pulse Ox 98 08/07/19 11:56 Height 5 ft 11 in Weight 196 lb GEN: awake, alert, NAD HEENT: anicteric, MMM NECK: supple, no JVD PULM: CTAB, no wheezing CV: RRR, no murmurs ABD: soft NT/ND, NABS EXT: no cce NEURO: nonfocal LABS: 08/07/19 07:20 WBC 4.78 L Hgb 9.2 L Plt Count 173 EGD 08/05 ESOPHAGUS: The mucosa of the esophagus appeared normal. A hiatal hernia was noted. Large Para esophageal Hiatal hernia noted involving majority of the stomach causing difficulty with the passage of EGD scope into the distal body and antrum. Need surgery evaluation and Barium UGI series. STOMACH: Acute gastritis (inflammation) was found in the gastric body and gastric antrum. DUODENUM: The duodenal mucosa showed no abnormalities in the duodenal bulb, 1st part duodenum, and 2nd part duodenum. A/P: Mr. Justin Hernandez is a 88 year old man who was admitted with acute GI bleeding melena. He underwent EGD on 08/05 that revealed a large paraesophageal hernia and mild antral gastritis. There were no Omar's ulcers or stigmata of recent bleeding. He was seen by Surgery for evaluation and hernia who recommended conservative mgmt as he is basically asymptomatic from this. The patient denies complaints at this time. He is stable and tolerating diet. Will continue PPI BID. Patient will follow-up as outpatient for evaluation with diagnostic colonoscopy.
== END 2019-08-07 15:47 | disposition home or self-care (01) | DRG 378 ==
LOC: P.ED 10:52 → P.MEDSURG 14:15 → SUATTDRO 14:15
PROVIDERS: ATTEND Internal Medicine